=== PATIENT | female | born 1950 | race Caucasian/White ===

== ENCOUNTER 2017-11-24 15:59 | Inpatient (IN) | payer MEDICARE, OTHER ==
[2017-11-24 16:34] LABS: BASO # 0.1 x10^3/uL (0.0-0.2); BASO % 0 % (0-3); EOS # 0.1 x10^3/uL (0.0-0.7); EOS % 0 % (0-3); HEMATOCRIT 37.9 % (36.0-47.0); HEMOGLOBIN 11.9 g/dL (12.0-15.5); LYMPH # 1.4 x10^3/uL (1.0-4.8); LYMPH % 8 % (24-48); MEAN CORPUSCULAR HEMOGLOBIN 25 pg (25-35); MEAN CORPUSCULAR HGB CONC 31 g/dL (31-37); MEAN CORPUSCULAR VOLUME 78 fL (79-100); MONO # 1.3 x10^3/uL (0.0-1.1); MONO % 8 % (0-9); NEUT # 13.6 x10^3uL (1.8-7.7); NEUT % 83 % (31-73); PLATELET COUNT 364 x10^3/uL (140-400); RED BLOOD COUNT 4.86 x10^6/uL (3.50-5.40); RED CELL DISTRIBUTION WIDTH 20.5 % (11.5-14.5); WHITE BLOOD COUNT 16.4 x10^3/uL (4.0-11.0)
[2017-11-24] MEDS: dilTIAZem IV PUSH 25 MG/5 ML VIAL IVP (16:34)
[2017-11-24 16:35] LABS: ADD MAN DIFF? YES
[2017-11-24] MEDS: ASPIRIN 325 MG TABLET PO (16:39)
[2017-11-24] MEDS: dilTIAZem VIAL 125 MG in IV DEXTROSE 5% 100 ML IV ×2 (16:44→23:53)
[2017-11-24 16:47] LABS: INR 1.2 (0.8-1.1); PROTHROMBIN TIME PATIENT 14.7 SEC (11.7-14.0)
[2017-11-24] MEDS: IPRATRPIUM/ALBUTEROL 0.5/2.5MG 3 ML NEBU. NEB ×2 (16:47→20:00)
[2017-11-24] MEDS: ALBUTEROL SULFATE 2.5 MG/3 ML NEBU. INH (16:47)
[2017-11-24 16:48] LABS: PARTIAL THROMBOPLASTIN TIME 30 SEC (24-38)
[2017-11-24 16:59] LABS: ANION GAP 13 (6-14); BLOOD UREA NITROGEN 63 mg/dL (7-20); BUN/CREATININE RATIO 48 (6-20); CALCIUM 8.9 mg/dL (8.5-10.1); CARBON DIOXIDE 30 mmol/L (21-32); CHLORIDE 98 mmol/L (98-107); CREATININE 1.3 mg/dL (0.6-1.0); GFR 40.9; GLUCOSE 140 mg/dL (70-99); POTASSIUM 4.1 mmol/L (3.5-5.1); SODIUM 141 mmol/L (136-145)
[2017-11-24 17:00] LABS: TROPONINI 0.031 ng/mL (0.000-0.055)
[2017-11-24 17:03] LABS: NT-PRO BNP 26687 pg/mL (0-124)
[2017-11-24 17:05] LABS: ALBUMIN 2.9 g/dL (3.4-5.0); ALBUMIN/GLOBULIN RATIO 0.5 (1.0-1.7); ALK PHOS 82 U/L (46-116); ALT (SGPT) 158 U/L (14-59); AST (SGOT) 90 U/L (15-37); MAGNESIUM 1.3 mg/dL (1.8-2.4); TOTAL BILIRUBIN 0.5 mg/dL (0.2-1.0); TOTAL PROTEIN 8.5 g/dL (6.4-8.2)
[2017-11-24] MEDS ORDERED: levOFLOXacin PER PHARMACY. MC (17:30)
[2017-11-24 17:31] LABS: PLT ESTIMATE ADEQUATE (ADEQUATE)
[2017-11-24 17:32] LABS: ANISOCYTOSIS MOD; HYPOCHROMIA SLIGHT; MICROCYTOSIS SLIGHT; POLYCHROMASIA SLIGHT
[2017-11-24] MEDS: IV NORMAL SALINE 1000ML BAG 1,000 ML IV ×2 (17:57→23:53)
[2017-11-24] MEDS: AZTREONAM 2 GM in IV DEXTROSE 5% 100 ML IV (17:58)
[2017-11-24] MEDS ORDERED: ONDANSETRON PF 4 MG/2 ML VIAL. IV (18:15)
[2017-11-24] MEDS ORDERED: ACETAMINOPHEN 325 MG TABLET. PO (18:15)
[2017-11-24 18:16] LABS: BILIRUBIN,URINE NEGATIVE (NEG); CLARITY,URINE TURBID; COLOR,URINE YELLOW; GLUCOSE,URINE NEGATIVE (NEG); NITRITE,URINE POSITIVE (NEG); PH,URINE 5.5; PROTEIN,URINE 30 mg/dL (NEG-TRACE)
[2017-11-24] MEDS: DIGOXIN IV 500 MCG/2 ML AMPUL. IV ×2 (18:17→19:07)
[2017-11-24 18:24] LABS: BACTERIA,URINE MANY /HPF (0-FEW); WBC,URINE TNTC /HPF (0-4)
[2017-11-24] MEDS: FUROSEMIDE 40 MG/4 ML VIAL. IVP (18:28)
[2017-11-24] MEDS: VANCOMYCIN 1.75 GM in IV DEXTROSE 5 %-0.2 % NACL 500 ML IV (18:37)
[2017-11-24] MEDS: HEPARIN for IV BOLUS 10,000 UNIT/10 ML VIAL. IV (19:18)
[2017-11-24] MEDS: HEPARIN 25,000UTS/500ML PREMIX 500 ML IV (19:35)
[2017-11-24] MEDS: VANCOMYCIN PER PHARMACY MC ×2 (19:39→19:47)
[2017-11-24] MEDS: LACTOBACILLUS RHAMNOSUS GG 1 CAPSULE. PO (21:00)
[2017-11-24 21:48] LABS: LACTIC ACID 1.1 mmol/L (0.4-2.0)
[2017-11-24 22:20] LABS: INFLUENZA A PATIENT NEGATIVE (NEGATIVE); INFLUENZA B PATIENT NEGATIVE (NEGATIVE); OBC FLU VALID
[2017-11-24] MEDS: MORPHINE SULFATE 2 MG/ML DISP.SYRIN. IV (22:32)
[2017-11-24] MEDS ORDERED: INSULIN ASPART 300 UNITS/3 ML INSULN.PEN SQ (23:00)
[2017-11-24] MEDS ORDERED: CLOBETASOL EMOLLIENT 0.05% TOPICAL CREAM 15GM TUBE. TP (23:00)
[2017-11-24] MEDS ORDERED: DEXTROSE ORAL GEL 15 GM TUBE. PO ×2 (23:00→23:56)
[2017-11-25] MEDS: LOPERAMIDE 2 MG CAPSULE PO
[2017-11-25 02:36] LABS: UNFRACTIONATED HEPARIN TESTING 0.23 IU/mL (0.30-0.70)
[2017-11-25 02:43] LABS: TROPONINI 0.031 ng/mL (0.000-0.055)
[2017-11-25] MEDS ORDERED: LOPERAMIDE 2 MG CAPSULE PO (05:30)
[2017-11-25] MEDS: POLYVINYL ALCOHOL 1.4% OPHTH SOLUTION 15ML BOTTLE. OU ×4 (06:00→17:45)
[2017-11-25] MEDS: MORPHINE SULFATE 2 MG/ML DISP.SYRIN. IV (06:26)
[2017-11-25] MEDS: DIGOXIN IV 500 MCG/2 ML AMPUL. IV (06:56)
[2017-11-25] MEDS: BUDESONIDE 0.5 MG/2 ML NEBU. NEB ×2 (07:52→20:04)
[2017-11-25] MEDS: IPRATRPIUM/ALBUTEROL 0.5/2.5MG 3 ML NEBU. NEB ×3 (07:52→15:18)
[2017-11-25] MEDS: VANCOMYCIN PER PHARMACY MC (08:49)
[2017-11-25] MEDS: ANTI-COAG MONITOR BY PHARMACY. MC (08:53)
[2017-11-25] MEDS ORDERED: MORPHINE SULFATE PO (09:00)
[2017-11-25] MEDS ORDERED: NON FORMULARY ITEM (Fluticasone/Salmeterol (Advair 250-50 Diskus) 1 PUFF) IH (09:00)
[2017-11-25] MEDS ORDERED: CALCIPOTRIENE 0.005% TOPICAL CREAM 60GM TUBE. TP (09:00)
[2017-11-25] MEDS: dilTIAZem VIAL 125 MG in IV DEXTROSE 5% 100 ML IV (09:01)
[2017-11-25] MEDS: oxyCODONE ER 10 MG TAB.ER.12H PO ×4 (09:02→21:30)
[2017-11-25] MEDS: LIDOCAINE (700MG/PATCH) PATCH. TP (09:03)
[2017-11-25] MEDS: MULTIVITAMIN with MINERAL TABLET. PO (09:03)
[2017-11-25] MEDS: MORPHINE ER 30 MG TABLET.ER PO ×3 (09:03→21:29)
[2017-11-25] MEDS: DOCUSATE SODIUM 100 MG CAPSULE. PO (09:03)
[2017-11-25] MEDS: metOLazone 2.5 MG TABLET PO (09:03)
[2017-11-25] MEDS: DULoxetine HCL 30 MG CAPSULE.DR PO (09:03)
[2017-11-25] MEDS: busPIRone 10 MG TABLET. PO ×2 (09:04→21:27)
[2017-11-25] MEDS: NYSTATIN 100,000 UNITS/ML 5 ML ORAL.SUSP. PO ×2 (09:04→21:27)
[2017-11-25] MEDS: metFORMIN 500 MG TABLET PO ×2 (09:04→17:43)
[2017-11-25] MEDS: BACLOFEN 10 MG TABLET. PO ×4 (09:04→21:28)
[2017-11-25] MEDS: PANTOPRAZOLE 40 MG TABLET.DR. PO ×2 (09:04→17:43)
[2017-11-25] MEDS: CETIRIZINE HCL 10 MG TABLET. PO (09:04)
[2017-11-25] MEDS: OXYBUTYNIN CHLORIDE 5 MG TABLET PO ×2 (09:04→21:28)
[2017-11-25] MEDS: LACTOBACILLUS RHAMNOSUS GG 1 CAPSULE. PO ×2 (09:04→21:28)
[2017-11-25] MEDS: FERROUS SULFATE 325 MG TABLET. PO ×3 (09:04→17:30)
[2017-11-25] MEDS: clonazePAM 1 MG TABLET PO ×3 (09:04→21:28)
[2017-11-25] MEDS: FUROSEMIDE 40 MG TABLET. PO (09:04)
[2017-11-25] MEDS: CALCIPOTRIENE 0.005% TOPICAL CREAM 60GM TUBE. TP ×2 (09:14→21:31)
[2017-11-25] MEDS: OXYMETAZOLINE 0.05% NASAL SPRAY 30ML BOTTLE. NS ×2 (09:14→21:27)
[2017-11-25] MEDS: TRIAMCINOLONE ACETONIDE 0.1% TOPICAL CREAM 15GM TUBE. TP ×2 (09:14→21:31)
[2017-11-25 09:24] LABS: UNFRACTIONATED HEPARIN TESTING 0.15 IU/mL (0.30-0.70)
[2017-11-25 09:49] LABS: TROPONINI 0.031 ng/mL (0.000-0.055)
[2017-11-25] MEDS: HEPARIN for IV BOLUS 10,000 UNIT/10 ML VIAL. IV (11:15)
[2017-11-25] MEDS: IV NORMAL SALINE 250ML 250 ML IV (11:20)
[2017-11-25 11:50] LABS: CHOLESTEROL 117 mg/dL (0-200); HDLC 46 mg/dL (40-60); LDLC 42 mg/dL (0-100); NON-HDL CHOLESTEROL 71 mg/dL (0-129); TRIGLYCERIDES 144 mg/dL (0-150); VLDLC 29 mg/dL (0-40)
[2017-11-25 11:56] LABS: CHOLESTEROL/HDL RATIO 2.5
[2017-11-25 11:59] LABS: THYROID STIM HORMONE (TSH) 0.672 uIU/mL (0.358-3.74)
[2017-11-25] MEDS: IV NORMAL SALINE 1000ML BAG 1,000 ML IV (12:18)
[2017-11-25] MEDS: MAGNESIUM SULFATE 2GM 50 ML IV (12:19)
[2017-11-25] MEDS: MAGNESIUM OXIDE 400 MG TABLET PO ×2 (13:41→21:27)
[2017-11-25 13:55] LABS: ANION GAP 13 (6-14); BLOOD UREA NITROGEN 36 mg/dL (7-20); CALCIUM 7.9 mg/dL (8.5-10.1); CARBON DIOXIDE 28 mmol/L (21-32); CHLORIDE 93 mmol/L (98-107); GFR 55.3; GLUCOSE 274 mg/dL (70-99); SODIUM 134 mmol/L (136-145)
[2017-11-25 13:57] LABS: POTASSIUM 2.9 mmol/L (3.5-5.1)
[2017-11-25] MEDS ORDERED: DEXTROSE 50% 25 GM / 50ML DISP.SYRIN. IV (14:15)
[2017-11-25] MEDS: POTASSIUM CHLORIDE 20 MEQ TABLET.ER. PO (14:25)
[2017-11-25] MEDS: POTASSIUM CL 40MEQ IN 0.9%NACL 1,000 ML IV (14:30)
[2017-11-25 17:43] LABS: POC GLUCOSE 186 mg/dL (70-99)
[2017-11-25] MEDS: VANCOMYCIN 1 GM in IV NORMAL SALINE 250ML 250 ML IV (17:44)
[2017-11-25] MEDS: INSULIN ASPART 300 UNITS/3 ML INSULN.PEN SQ (17:48)
[2017-11-25 20:18] LABS: MRSA BY PCR Positive (Negative)
[2017-11-25] MEDS ORDERED: BISACODYL 5 MG TABLET.DR. PO ×2 (21:00→22:00)
[2017-11-25] MEDS: ATORVASTATIN CALCIUM 10 MG TABLET. PO (21:28)
[2017-11-25] MEDS: traZODone 100 MG TABLET. PO (21:28)
[2017-11-25] MEDS: INSULIN DETEMIR 300 UNITS/3 ML INSULN.PEN. SQ (21:49)
[2017-11-25 21:59] LABS: POC GLUCOSE 111 mg/dL (70-99)
[2017-11-25] MEDS ORDERED: DOCUSATE SODIUM 100 MG CAPSULE. PO (22:00)
[2017-11-26] MEDS: POTASSIUM CL 40MEQ IN 0.9%NACL 1,000 ML IV ×2 (00:06→10:48)
[2017-11-26] MEDS: POLYVINYL ALCOHOL 1.4% OPHTH SOLUTION 15ML BOTTLE. OU (00:06)
[2017-11-26 07:17] LABS: ADD MAN DIFF? NO
[2017-11-26] MEDS: ANTI-COAG MONITOR BY PHARMACY. MC (07:21)
[2017-11-26 07:22] LABS: BASO % 0 % (0-3); EOS # 0.2 x10^3/uL (0.0-0.7); EOS % 2 % (0-3); HEMATOCRIT 32.2 % (36.0-47.0); HEMOGLOBIN 10.2 g/dL (12.0-15.5); LYMPH # 1.9 x10^3/uL (1.0-4.8); LYMPH % 16 % (24-48); MEAN CORPUSCULAR HEMOGLOBIN 25 pg (25-35); MEAN CORPUSCULAR HGB CONC 32 g/dL (31-37); MEAN CORPUSCULAR VOLUME 78 fL (79-100); MONO # 0.9 x10^3/uL (0.0-1.1); MONO % 8 % (0-9); NEUT # 8.9 x10^3uL (1.8-7.7); NEUT % 74 % (31-73); PLATELET COUNT 255 x10^3/uL (140-400); RED BLOOD COUNT 4.13 x10^6/uL (3.50-5.40); RED CELL DISTRIBUTION WIDTH 20.7 % (11.5-14.5)
[2017-11-26 07:39] LABS: MAGNESIUM 1.5 mg/dL (1.8-2.4)
[2017-11-26 07:42] LABS: ALBUMIN 2.4 g/dL (3.4-5.0); ALBUMIN/GLOBULIN RATIO 0.5 (1.0-1.7); ALK PHOS 71 U/L (46-116); ALT (SGPT) 88 U/L (14-59); ANION GAP 8 (6-14); AST (SGOT) 29 U/L (15-37); BLOOD UREA NITROGEN 29 mg/dL (7-20); BUN/CREATININE RATIO 29 (6-20); CALCIUM 8.5 mg/dL (8.5-10.1); CARBON DIOXIDE 30 mmol/L (21-32); CHLORIDE 103 mmol/L (98-107); GFR 55.3; GLUCOSE 120 mg/dL (70-99); POTASSIUM 3.9 mmol/L (3.5-5.1); SODIUM 141 mmol/L (136-145); TOTAL BILIRUBIN 0.3 mg/dL (0.2-1.0); TOTAL PROTEIN 7.2 g/dL (6.4-8.2)
[2017-11-26] MEDS: INSULIN ASPART 300 UNITS/3 ML INSULN.PEN SQ ×3 (08:00→17:00)
[2017-11-26] MEDS: BUDESONIDE 0.5 MG/2 ML NEBU. NEB ×2 (08:09→19:12)
[2017-11-26] MEDS: LIDOCAINE (700MG/PATCH) PATCH. TP (08:28)
[2017-11-26] MEDS: MORPHINE ER 30 MG TABLET.ER PO ×3 (08:28→20:34)
[2017-11-26] MEDS: NYSTATIN 100,000 UNITS/ML 5 ML ORAL.SUSP. PO ×3 (08:28→20:34)
[2017-11-26] MEDS: oxyCODONE ER 10 MG TAB.ER.12H PO ×4 (08:29→20:33)
[2017-11-26] MEDS: DULoxetine HCL 30 MG CAPSULE.DR PO (08:29)
[2017-11-26] MEDS: clonazePAM 1 MG TABLET PO ×3 (08:29→20:30)
[2017-11-26] MEDS: FERROUS SULFATE 325 MG TABLET. PO ×3 (08:29→17:02)
[2017-11-26] MEDS: LACTOBACILLUS RHAMNOSUS GG 1 CAPSULE. PO ×2 (08:29→20:31)
[2017-11-26] MEDS: MULTIVITAMIN with MINERAL TABLET. PO (08:29)
[2017-11-26] MEDS: metFORMIN 500 MG TABLET PO ×2 (08:29→17:00)
[2017-11-26] MEDS: PANTOPRAZOLE 40 MG TABLET.DR. PO ×2 (08:29→17:00)
[2017-11-26] MEDS: MAGNESIUM OXIDE 400 MG TABLET PO ×3 (08:30→20:31)
[2017-11-26] MEDS: BACLOFEN 10 MG TABLET. PO ×4 (08:30→20:30)
[2017-11-26] MEDS: OXYBUTYNIN CHLORIDE 5 MG TABLET PO ×2 (08:30→20:31)
[2017-11-26] MEDS: FUROSEMIDE 40 MG TABLET. PO (08:30)
[2017-11-26] MEDS: CETIRIZINE HCL 10 MG TABLET. PO (08:30)
[2017-11-26] MEDS: busPIRone 10 MG TABLET. PO ×2 (08:30→20:31)
[2017-11-26] MEDS: OXYMETAZOLINE 0.05% NASAL SPRAY 30ML BOTTLE. NS ×2 (08:35→20:28)
[2017-11-26] MEDS: CALCIPOTRIENE 0.005% TOPICAL CREAM 60GM TUBE. TP ×2 (08:36→20:29)
[2017-11-26] MEDS: TRIAMCINOLONE ACETONIDE 0.1% TOPICAL CREAM 15GM TUBE. TP ×2 (08:37→20:28)
[2017-11-26 08:52] LABS: POC GLUCOSE 90 mg/dL (70-99)
[2017-11-26] MEDS: MAGNESIUM SULFATE 2GM 50 ML IV (11:45)
[2017-11-26 12:34] LABS: POC GLUCOSE 149 mg/dL (70-99)
[2017-11-26] MEDS: VANCOMYCIN PER PHARMACY MC (13:19)
[2017-11-26] MEDS ORDERED: CEFEPIME HCL 1 GM in IV DEXTROSE 5% 50 ML IV (14:00)
[2017-11-26] MEDS: CEFEPIME HCL IV Push 1 GM VIAL. IVP ×2 (14:07→20:30)
[2017-11-26 17:06] LABS: POC GLUCOSE 105 mg/dL (70-99)
[2017-11-26 20:07] LABS: POC GLUCOSE 152 mg/dL (70-99)
[2017-11-26] MEDS: traZODone 100 MG TABLET. PO (20:30)
[2017-11-26] MEDS: ATORVASTATIN CALCIUM 10 MG TABLET. PO (20:31)
[2017-11-26] MEDS: INSULIN DETEMIR 300 UNITS/3 ML INSULN.PEN. SQ (20:49)
[2017-11-27] MEDS: CEFEPIME HCL IV Push 1 GM VIAL. IVP ×3 (05:55→22:39)
[2017-11-27] MEDS: POTASSIUM CL 40MEQ IN 0.9%NACL 1,000 ML IV (05:58)
[2017-11-27] MEDS: INSULIN ASPART 300 UNITS/3 ML INSULN.PEN SQ ×3 (08:00→17:00)
[2017-11-27] MEDS: metFORMIN 500 MG TABLET PO ×2 (08:03→17:32)
[2017-11-27] MEDS: PANTOPRAZOLE 40 MG TABLET.DR. PO ×2 (08:03→17:32)
[2017-11-27] MEDS: FERROUS SULFATE 325 MG TABLET. PO ×3 (08:05→17:30)
[2017-11-27 08:29] LABS: POC GLUCOSE 78 mg/dL (70-99)
[2017-11-27] MEDS: ANTI-COAG MONITOR BY PHARMACY. MC (08:33)
[2017-11-27] MEDS: NYSTATIN 100,000 UNITS/ML 5 ML ORAL.SUSP. PO ×3 (09:00→21:00)
[2017-11-27] MEDS: LACTOBACILLUS RHAMNOSUS GG 1 CAPSULE. PO ×2 (09:23→22:45)
[2017-11-27] MEDS: MAGNESIUM OXIDE 400 MG TABLET PO ×3 (09:24→22:44)
[2017-11-27] MEDS: oxyCODONE ER 10 MG TAB.ER.12H PO ×4 (09:26→22:44)
[2017-11-27] MEDS: DULoxetine HCL 30 MG CAPSULE.DR PO (09:26)
[2017-11-27] MEDS: MORPHINE ER 30 MG TABLET.ER PO ×3 (09:27→22:43)
[2017-11-27] MEDS: OXYMETAZOLINE 0.05% NASAL SPRAY 30ML BOTTLE. NS ×2 (09:27→21:00)
[2017-11-27] MEDS: CETIRIZINE HCL 10 MG TABLET. PO (09:27)
[2017-11-27] MEDS: MULTIVITAMIN with MINERAL TABLET. PO (09:27)
[2017-11-27] MEDS: OXYBUTYNIN CHLORIDE 5 MG TABLET PO ×2 (09:27→22:43)
[2017-11-27] MEDS: BACLOFEN 10 MG TABLET. PO ×4 (09:27→22:44)
[2017-11-27] MEDS: clonazePAM 1 MG TABLET PO ×3 (09:27→22:41)
[2017-11-27] MEDS: busPIRone 10 MG TABLET. PO ×2 (09:27→22:42)
[2017-11-27] MEDS: LIDOCAINE (700MG/PATCH) PATCH. TP (09:29)
[2017-11-27 09:35] LABS: ALBUMIN 2.4 g/dL (3.4-5.0); ALBUMIN/GLOBULIN RATIO 0.5 (1.0-1.7); ALK PHOS 69 U/L (46-116); ALT (SGPT) 59 U/L (14-59); ANION GAP 7 (6-14); AST (SGOT) 16 U/L (15-37); BLOOD UREA NITROGEN 22 mg/dL (7-20); BUN/CREATININE RATIO 28 (6-20); CALCIUM 9.1 mg/dL (8.5-10.1); CARBON DIOXIDE 31 mmol/L (21-32); CHLORIDE 102 mmol/L (98-107); CREATININE 0.8 mg/dL (0.6-1.0); GFR 71.5; GLUCOSE 167 mg/dL (70-99); MAGNESIUM 1.7 mg/dL (1.8-2.4); POTASSIUM 4.5 mmol/L (3.5-5.1); SODIUM 140 mmol/L (136-145); TOTAL BILIRUBIN 0.4 mg/dL (0.2-1.0); TOTAL PROTEIN 7.2 g/dL (6.4-8.2)
[2017-11-27] MEDS: CALCIPOTRIENE 0.005% TOPICAL CREAM 60GM TUBE. TP ×2 (09:37→21:00)
[2017-11-27] MEDS: TRIAMCINOLONE ACETONIDE 0.1% TOPICAL CREAM 15GM TUBE. TP ×2 (09:37→21:00)
[2017-11-27 09:53] LABS: HEMATOCRIT 33.5 % (36.0-47.0); HEMOGLOBIN 10.7 g/dL (12.0-15.5); MEAN CORPUSCULAR HEMOGLOBIN 25 pg (25-35); MEAN CORPUSCULAR HGB CONC 32 g/dL (31-37); MEAN CORPUSCULAR VOLUME 78 fL (79-100); PLATELET COUNT 256 x10^3/uL (140-400); RED BLOOD COUNT 4.28 x10^6/uL (3.50-5.40); RED CELL DISTRIBUTION WIDTH 20.4 % (11.5-14.5); WHITE BLOOD COUNT 9.3 x10^3/uL (4.0-11.0)
[2017-11-27] MEDS: BUDESONIDE 0.5 MG/2 ML NEBU. NEB ×2 (10:19→19:24)
[2017-11-27 12:04] LABS: POC GLUCOSE 124 mg/dL (70-99)
[2017-11-27] MEDS ORDERED: ALBUTEROL SULFATE 2.5 MG/3 ML NEBU. NEB (12:30)
[2017-11-27] MEDS: IPRATRPIUM/ALBUTEROL 0.5/2.5MG 3 ML NEBU. NEB ×3 (12:55→20:00)
[2017-11-27 17:18] LABS: POC GLUCOSE 102 mg/dL (70-99)
[2017-11-27 19:52] LABS: POC GLUCOSE 147 mg/dL (70-99)
[2017-11-27] MEDS: ATORVASTATIN CALCIUM 10 MG TABLET. PO (22:41)
[2017-11-27] MEDS: traZODone 100 MG TABLET. PO (22:42)
[2017-11-27] MEDS: INSULIN DETEMIR 300 UNITS/3 ML INSULN.PEN. SQ (22:58)
[2017-11-28] MEDS: POTASSIUM CL 40MEQ IN 0.9%NACL 1,000 ML IV (03:01)
[2017-11-28] MEDS: CEFEPIME HCL IV Push 1 GM VIAL. IVP (06:04)
[2017-11-28] MEDS: PANTOPRAZOLE 40 MG TABLET.DR. PO (07:53)
[2017-11-28] MEDS: INSULIN ASPART 300 UNITS/3 ML INSULN.PEN SQ ×2 (07:56→11:31)
[2017-11-28 07:58] LABS: POC GLUCOSE 79 mg/dL (70-99)
[2017-11-28] MEDS: FERROUS SULFATE 325 MG TABLET. PO ×3 (08:30→11:11)
[2017-11-28] MEDS: IPRATRPIUM/ALBUTEROL 0.5/2.5MG 3 ML NEBU. NEB ×2 (08:40→12:30)
[2017-11-28] MEDS: BUDESONIDE 0.5 MG/2 ML NEBU. NEB (08:40)
[2017-11-28] MEDS: NYSTATIN 100,000 UNITS/ML 5 ML ORAL.SUSP. PO ×2 (08:46→09:00)
[2017-11-28] MEDS: LACTOBACILLUS RHAMNOSUS GG 1 CAPSULE. PO (08:47)
[2017-11-28] MEDS: CALCIPOTRIENE 0.005% TOPICAL CREAM 60GM TUBE. TP (08:47)
[2017-11-28] MEDS: BACLOFEN 10 MG TABLET. PO (08:47)
[2017-11-28] MEDS: metFORMIN 500 MG TABLET PO (08:47)
[2017-11-28] MEDS: DULoxetine HCL 30 MG CAPSULE.DR PO (08:47)
[2017-11-28] MEDS: MULTIVITAMIN with MINERAL TABLET. PO (08:47)
[2017-11-28] MEDS: busPIRone 10 MG TABLET. PO (08:47)
[2017-11-28] MEDS: TRIAMCINOLONE ACETONIDE 0.1% TOPICAL CREAM 15GM TUBE. TP ×2 (08:47→09:00)
[2017-11-28] MEDS: MAGNESIUM OXIDE 400 MG TABLET PO (08:47)
[2017-11-28] MEDS: CETIRIZINE HCL 10 MG TABLET. PO (08:47)
[2017-11-28] MEDS: OXYBUTYNIN CHLORIDE 5 MG TABLET PO (08:47)
[2017-11-28] MEDS: POLYVINYL ALCOHOL 1.4% OPHTH SOLUTION 15ML BOTTLE. OU (08:48)
[2017-11-28] MEDS: OXYMETAZOLINE 0.05% NASAL SPRAY 30ML BOTTLE. NS ×2 (08:48→09:00)
[2017-11-28] MEDS: LIDOCAINE (700MG/PATCH) PATCH. TP (08:49)
[2017-11-28] MEDS: oxyCODONE ER 10 MG TAB.ER.12H PO (08:50)
[2017-11-28] MEDS: clonazePAM 1 MG TABLET PO (08:50)
[2017-11-28] MEDS: MORPHINE ER 30 MG TABLET.ER PO (08:50)
[2017-11-28 11:24] LABS: POC GLUCOSE 98 mg/dL (70-99)
[2017-11-28] MEDS ORDERED: CEFPODOXIME PROXETIL 100 MG TABLET. PO (21:00)
== END 2017-11-28 13:45 | DRG 871 ==
LOC: 5 NORTH 11-26 13:36 → ER 15:59 → 1 WEST ICU 17:22
DX: A41.9 Sepsis, unspecified organism (principal); E43 Unspecified severe protein-calorie malnutrition; N17.9 Acute kidney failure, unspecified; J18.9 Pneumonia, unspecified organism; I11.0 Hypertensive heart disease with heart failure; G82.20 Paraplegia, unspecified; I48.91 Unspecified atrial fibrillation; I50.9 Heart failure, unspecified; E83.42 Hypomagnesemia; R13.10 Dysphagia, unspecified; J44.0 Chronic obstructive pulmonary disease with (acute) lower respiratory infection; N39.0 Urinary tract infection, site not specified; T83.518A Infection and inflammatory reaction due to other urinary catheter, initial encounter; E86.0 Dehydration; B96.89 Other specified bacterial agents as the cause of diseases classified elsewhere; E11.9 Type 2 diabetes mellitus without complications; E78.00 Pure hypercholesterolemia, unspecified; E78.5 Hyperlipidemia, unspecified; G14 Postpolio syndrome; G40.909 Epilepsy, unspecified, not intractable, without status epilepticus; K21.9 Gastro-esophageal reflux disease without esophagitis; K74.60 Unspecified cirrhosis of liver; M81.0 Age-related osteoporosis without current pathological fracture; F32.9 Major depressive disorder, single episode, unspecified; F41.9 Anxiety disorder, unspecified; B96.1 Klebsiella pneumoniae [K. pneumoniae] as the cause of diseases classified elsewhere; M19.90 Unspecified osteoarthritis, unspecified site; M48.061 Spinal stenosis, lumbar region without neurogenic claudication; B95.62 Methicillin resistant Staphylococcus aureus infection as the cause of diseases classified elsewhere; Y84.6 Urinary catheterization as the cause of abnormal reaction of the patient, or of later complication, without mention of misadventure at the time of the procedure; Y95 Nosocomial condition; Z66 Do not resuscitate; Z74.01 Bed confinement status; Z82.49 Family history of ischemic heart disease and other diseases of the circulatory system; Z83.3 Family history of diabetes mellitus; Z87.440 Personal history of urinary (tract) infections; Z87.891 Personal history of nicotine dependence; Z90.49 Acquired absence of other specified parts of digestive tract; Z90.710 Acquired absence of both cervix and uterus; Z68.24 Body mass index [BMI] 24.0-24.9, adult; Z88.6 Allergy status to analgesic agent; Z88.0 Allergy status to penicillin; Z98.51 Tubal ligation status
CPT/HCPCS: 36415; 71045; 80048; 80053; 80061; 81001; 82962; 83605; 83735; 83880; 84443; 84484; 85007; 85025; 85027; 85520; 85610; 85730; 87040; 87086; 87186; 87641; 87804; 87804-59; 92610-GN; 93005; 93306; 94618; 94640; 96365; 96367; 96368; 96375; 96376; 99291; 99291-25; J0692; J1160; J1644; J1650; J1815; J1940; J1956; J2270; J3370; J3480; J3490; J7030; J7050; J7060; J7613; J7620; J7626